=== PATIENT | female | born 1980 | race African-American/Black ===

== ENCOUNTER → 2017-02-16 | Outpatient (CLI) | payer OTHER ==
[~2017-02-16] MED LIST: FLUO20CA8 PO; MOME17SP NS; SERT50TA PO; SUMA100T4 PO; TOPI25TA52 PO; ZOLP12.52 PO
[2017-02-16 17:01] LABS: BASO % 1 % (0-3); EOS % 2 % (0-3); HEMATOCRIT 32.9 % (36.0-47.0); HEMOGLOBIN 11.4 g/dL (12.0-15.5); LYMPH # 1.7 x10^3/uL (1.0-4.8); LYMPH % 38 % (24-48); MEAN CORPUSCULAR HEMOGLOBIN 32 pg (25-35); MEAN CORPUSCULAR HGB CONC 35 g/dL (31-37); MEAN CORPUSCULAR VOLUME 93 fL (79-100); MONO % 7 % (0-9); NEUT % 53 % (31-73); PLATELET COUNT 229 x10^3/uL (140-400); RED BLOOD COUNT 3.55 x10^6/uL (3.50-5.40); RED CELL DISTRIBUTION WIDTH 12.9 % (11.5-14.5); WHITE BLOOD COUNT 4.5 x10^3/uL (4.0-11.0)
[2017-02-16 17:14] LABS: CALCIUM 8.6 mg/dL (8.5-10.1); CREATININE 0.6 mg/dL (0.6-1.0); GFR 136.9; POTASSIUM 4.2 mmol/L (3.5-5.1)
== END | disposition home or self-care (01) ==
LOC: SURGPAT 15:57
PROVIDERS: ATTEND Obstetrics & Gynecology
DX: Z01.818 Encounter for other preprocedural examination (principal)
CPT/HCPCS: 36415; 80048; 85025

== ENCOUNTER 2017-02-24 10:31 | Observation (INO) | payer OTHER ==
[~2017-02-24] VITALS: Ht 160 cm; Wt 83.9 kg
[~2017-02-24 10:31] MED LIST changes: +BUPIVACAINE-EPI 0.25%-1:200000 MPF 30 ML VIAL. ONE; +DEXAMETHASONE SOD PHOS 20 MG/5 ML VIAL. ONE; +ESTROGENS, CONJ VAGINAL CREAM 30GM TUBE. ONE; +HYDROmorphone 2 MG/ML VIAL IV PRN; +IV RINGERS,LACTATED 1000ML 1,000 ML IV SCH; +LIDOCAINE 1% 1 ML SYRINGE. ID PRN; +LIDOCAINE 2% PF Vial for OR 5 ML VIAL. ONE; +MIDAZOLAM HCL/PF 2 MG/2 ML VIAL. ONE; +MORPHINE SULFATE 2 MG/ML DISP.SYRIN. IV PRN; +ONDANSETRON PF 4 MG/2 ML VIAL. IV PRN; +ONDANSETRON PF 4 MG/2 ML VIAL. ONE; +PROCHLORPERAZINE 10 MG/2 ML VIAL. IV PRN; +PROPOFOL 20 ML IV ONE; +ROCURONIUM 100 MG/10 ML VIAL. ONE; +SEVOFLURANE > 120 MINUTES. IH ONE; +fentaNYL PF VIAL 100 MCG/2 ML VIAL IV PRN; +fentaNYL PF VIAL 100 MCG/2 ML VIAL ONE
[2017-02-24] MEDS ORDERED: KETOROLAC 60 MG/2 ML INJ FOR OR. ONE ×2 (10:41→12:49)
[2017-02-24 10:54] LABS: NEG OBC UR NEG; POS OBC UR POS
[2017-02-24] MEDS ORDERED: GLYCOPYRROLATE 1 MG/5 ML VIAL. ONE (12:09)
[2017-02-24] MEDS ORDERED: NEOSTIGMINE 10 MG/10 ML VIAL. ONE (12:40)
[2017-02-24] MEDS ORDERED: SEVOFLURANE 61 TO 120 MINUTES. IH ONE (12:55)
[2017-02-24] MEDS ORDERED: ONDANSETRON PF 4 MG/2 ML VIAL. IV PRN (13:00)
[2017-02-24] MEDS ORDERED: 0.9 % SODIUM CHLORIDE 10 ML DISP.SYRIN. IV PRN (13:00)
[2017-02-24] MEDS ORDERED: diphenhydrAMINE HCL 25 MG CAPSULE PO PRN (13:00)
[2017-02-24] MEDS ORDERED: LACTULOSE 20 GM/30 ML SOLUTION. PO PRN (13:00)
[2017-02-24] MEDS ORDERED: HYDROmorphone 2 MG/ML VIAL IV PRN (13:00)
[2017-02-24] MEDS ORDERED: SIMETHICONE 80 MG TAB.CHEW PO PRN (13:00)
[2017-02-24] MEDS ORDERED: ZOLPIDEM 5 MG TABLET. PO PRN (13:00)
[2017-02-24] MEDS ORDERED: KETOROLAC TROMETHAMINE 30 MG/ML INJ. IV PRN (13:00)
[2017-02-24] MEDS ORDERED: diphenhydrAMINE 50 MG/ML VIAL IV PRN (13:00)
[2017-02-24] MEDS ORDERED: IBUPROFEN 600 MG TABLET. PO PRN (13:00)
[2017-02-24] MEDS ORDERED: NALOXONE 0.4 MG/ML VIAL. IV PRN (13:00)
[2017-02-24] MEDS ORDERED: BISACODYL 10 MG SUPP.RECT. PR PRN (13:00)
[2017-02-24] MEDS ORDERED: CALCIUM CARBONATE 500 MG TAB.CHEW PO PRN (13:00)
[2017-02-24] MEDS ORDERED: HYDROcodone/APAP 5/325MG 1 TAB TABLET PO PRN (13:00)
[2017-02-24] MEDS ORDERED: HYDROmorphone 2 MG/ML VIAL IM PRN (13:00)
[2017-02-24] MEDS ORDERED: MAG HYDROX/ALUMINUM HYD/SIMETH 30 ML ORAL.SUSP PO PRN (13:00)
[2017-02-24] MEDS ORDERED: PROCHLORPERAZINE 25 MG SUPP.RECT. PR PRN ×2 (13:00)
--- NOTE | 2017-02-24 13:00 | PDOC ---
BRIEF OPERATIVE NOTE Date: Feb 24, 2017 Pre-Op Diagnosis menorrhagia, metrorrhagia, uterine fibroids Post-Op Diagnosis same Procedure Performed LAVH and bilateral salpingectomy Surgeon Lexus Clay Caster David Anesthesiologist [place] Anesthesia Type: General Blood Loss 75cc IV Fluid see anesthesia report Urine Output 200cc Specimens Obtained uterus Findings enlarged uterus Complications none OPerative Note see dictation CAREN SHELTON MD Feb 24, 2017 13:00
--- NOTE | 2017-02-24 13:05 | DISCH ---
DISCHARGE INSTRUCTIONS Condition on Discharge Condition on Discharge: Stable Activity After Discharge Activity Instructions for Disc: Avoid exertion, Progressive ambulation Lifting Instructions after Dis: No heavy lifting, No pulling or pushing, Do not lift >10 pounds Exercise Instruction after Dis: Progress as tolerated Driving Instructions after Dis: Do not drive today, No driving for 2 weeks Diet after Discharge Diet after Discharge: Regular Diet Texture: Regular Wound Incision Care Wound/Incision Care: Ice to area for comfort, May get incision wet Contacting the DR. after DC Call your doctor for: If your condition worsens Follow-Up Follow up with: 1 week CAREN Bell MD Feb 24, 2017 13:05
[2017-02-24] MEDS ORDERED: fentaNYL PF VIAL 100 MCG/2 ML VIAL ONE (13:11)
[2017-02-24] MEDS ORDERED: PROCHLORPERAZINE 10 MG/2 ML VIAL. ONE (13:11)
[2017-02-24] MEDS ORDERED: SUMAtriptan SUCCINATE 100 MG TABLET PO PRN (13:15)
--- NOTE | 2017-02-24 13:29 | OP ---
DATE OF SURGERY: 02/24/2017 PREOPERATIVE DIAGNOSES: Menorrhagia, metrorrhagia and uterine fibroids. POSTOPERATIVE DIAGNOSES: Menorrhagia, metrorrhagia and uterine fibroids. PROCEDURE: Laparoscopically assisted vaginal hysterectomy and bilateral salpingectomy. SURGEON: Lis Shelton MD ANESTHESIA: Dr. Brown DIRECTOR OF MIDWIFERY/STAFF MIDWIFE: David. ANESTHESIA TYPE: General. ESTIMATED BLOOD LOSS: 75 mL. URINE OUTPUT: 200 mL of clear urine. SPECIMENS: Uterus and tubes. FINDINGS: Enlarged uterus. COMPLICATIONS: None. DESCRIPTION OF PROCEDURE: After informed consent was obtained, the patient was taken to the operating room, given a smooth induction of anesthesia without complications. Her abdomen, perineum, and vagina were prepped and draped in the usual sterile fashion. Her legs were placed in Sharan stirrups and a Mederos catheter had been previously placed. A bivalve speculum was placed in the vagina and the anterior lip of the cervix was grasped with a single tooth tenaculum. The Valtchev was placed through the cervical os and attached to the tenaculum. The cervicovaginal junction was infiltrated with 0.25% Marcaine with epinephrine at 2, 4, 8 and 10 o'clock on the cervix. After we did this, again the Valtchev had been placed. We then removed the speculum from the cervix. I changed gloves and then went above. A 5 mm incision was made at the umbilicus. The bladeless trocar was placed down through this incision and the camera confirmed good trocar placement. The patient was placed in Trendelenburg. Two lateral ports were placed under direct visualization. We then proceeded to use the LigaSure to cauterize across the round ligaments bilaterally. These were transected and incised and then the tubes were elevated on both sides. We transected the mesosalpinx of the tube from the ovary on both sides to remove the tubes with the specimen. We then proceeded to cauterize across the uteroovarian ligaments bilaterally to leave the ovaries behind and free the uterus. We then proceeded to cauterize down the sides of the uterus. We created a bladder flap anteriorly using sharp dissection with the scissors. The bladder was retracted inferiorly with blunt dissection. Once we reached the uterosacral ligaments cauterizing down the sides of the uterus, we stopped. We then went below to replace the speculum back in the vagina. The Valtchev and tenaculum were replaced by 2 Shaye thyroid clamps. We created a circumferential incision around the cervicovaginal junction and retracted the bladder anteriorly off of the cervix. We then entered the posterior peritoneum using sharp dissection and tacked the posterior peritoneum to the posterior vaginal wall. We then placed a Kierra speculum intraperitoneally. We then proceeded to cauterize the uterosacral cardinal complex using 2 Teodora transfixion sutures. These were then tacked to the lateral vaginal sidewalls and saved for later use. We then proceeded to clamp, cut and ligate the remainder of the cardinal complex on both sides and the remainder of the uterine arteries using the LigaSure. Once the uterus was free, it was removed from the field. We then proceeded to close the peritoneum using a running pursestring suture of 2-0 Vicryl. The vaginal cuff was then closed with a running locking stitch of 2-0 Vicryl. We then proceeded above to irrigate the pelvis. The pelvis was irrigated and no areas of bleeding were noted. Tisseel was sprayed on all the raw surfaces. At this point, the procedure was terminated. The instruments were removed under direct visualization. The gas was allowed to escape. The ports were then closed with an interrupted suture of 4-0 nylon and infiltrated with anesthetic for patient comfort. The patient tolerated the procedure well. There were no complications. LIS SHELTON MD DR: YOLY/adilson JOB#: [id number] / [id number]
[2017-02-24] MEDS: fentaNYL PF VIAL 100 MCG/2 ML VIAL IV PRN ×2 (13:44→14:04)
[2017-02-24 15:37] VITALS: BP 107/63
[2017-02-24] MEDS: oxyCODONE/APAP 5/325 1 TAB TABLET PO PRN ×2 (17:47→22:49)
[2017-02-24] MEDS ORDERED: ZOLPIDEM 5 MG TABLET. PO SCH (21:00)
[2017-02-24 21:45] VITALS: BP 106/67
[2017-02-24] MEDS: TOPIRAMATE 25 MG TABLET. PO SCH (22:50)
--- NOTE | 2017-02-25 01:54 | ACF ---
Admit Criteria Forms Admit Criteria Forms Admit Criteria Forms PAIN MANAGEMENT GRG Clinical Indications for Admission to Inpatient Care (Place 'X' for any and all applicable criteria): Hospital admission is needed for appropriate care of the patient because of 1 or more of the following are present (1)(2)(3)(4)(5): [X ]I. Severe pain requiring acute inpatient management as indicated by 1 or more of the following (2)(5)(10): [ X]a) Continuous or frequent (eg, every 2 to 4 hours) parenteral analgesics required [A] [ ]b) Necessity (ie, alternative approaches not effective) for analgesic regimen that can only be performed or initiated in inpatient setting [ ]II. Pain causing debilitation to the point of inability to function or be supported at any other level of care [ ]III. Severe side effects from pain medications as indicated by ANY ONE of the following (12)(13)(14)(15): [ ]a) Uncontrollable seizures [ ]b) Cardiac arrhythmias of immediate concern [ ]c) Dehydration that is severe or persistent [ ]d) Vomiting that is severe or persistent [ ]e) Altered mental status that is severe or persistent [ ]f) Obstipation with inadequate GI function to maintain nutrition The original [employer] content created by [employer] has been revised. The portions of the content which have been revised are identified through the use of italic text or in bold, and [employer] has neither reviewed nor approved the modified material. All other unmodified content is copyright [employer]. Please see references footnoted in the original [employer] edition 2016 MILEY ROSALES Feb 25, 2017 01:54
[2017-02-25] MEDS: oxyCODONE/APAP 5/325 1 TAB TABLET PO PRN ×2 (03:05→08:46)
[2017-02-25 06:09] VITALS: BP 107/51
--- NOTE | 2017-02-25 08:36 | PDOC ---
SURGICAL PROGRESS NOTE Subjective Doing well. No complaints. Eating and ambulating Vital Signs Vital Signs Date Time Temp Pulse Resp B/P (MAP) Pulse Ox O2 Delivery O2 Flow Rate FiO2 02/25/17 06:09 98.2 65 18 107/51 (69) 98 Room Air 98.2 02/24/17 14:10 2 I&O Intake and Output 02/25/17 07:00 Intake Total 2070 ml Output Total 1250 ml Balance 820 ml Intake Oral 620 ml IV Total 1450 ml Output Urine Total 1250 ml PATIENT HAS A CUEVAS: No General: Alert, Oriented X3, Cooperative, No acute distress HEENT: Mucous membr. moist/pink Lungs: Clear to auscultation, Normal air movement Heart: Regular rate, Normal S1, Normal S2, No murmurs Abdomen: Normal bowel sounds, Soft, No tenderness, No hepatosplenomegaly, No masses, Other (incisions C/D/I) Extremities: No clubbing, No cyanosis, No edema, Normal pulses, No tenderness/ swelling Labs Laboratory Tests Test 02/24/17 10:45 02/24/17 17:40 Urine Test Negative (NEG) Hematocrit 38.4 % (36.0-47.0) Laboratory Tests Test 02/24/17 10:45 02/24/17 17:40 Urine Test Negative (NEG) Hematocrit 38.4 % (36.0-47.0) I have reviewed the following labs, vitals Problem List POD #1 from [facility] and bilateral salpingectomy. Doing well. Plan for discharge today Problems: CAREN SHELTON MD Feb 25, 2017 08:36
[2017-02-25] MEDS: TOPIRAMATE 25 MG TABLET. PO SCH (08:45)
--- NOTE | 2017-02-25 08:45 | PDOC3 ---
Discharge Summary Visit Information Date of Admission: Feb 24, 2017 Date of Discharge: Feb 25, 2017 Admitting Diagnosis: menorrhagia, fibroid uterus Brief Hospital Course Allergies Allergies Coded Allergies Type Severity Reaction Last Updated Verified No Known Drug Allergies 02/24/17 No Vital Signs Vital Signs Date Time Temp Pulse Resp B/P (MAP) Pulse Ox O2 Delivery O2 Flow Rate FiO2 02/25/17 06:09 98.2 65 18 107/51 (69) 98 Room Air 98.2 02/24/17 14:10 2 Lab Results Laboratory Tests Test 02/24/17 10:45 02/24/17 17:40 Urine Test Negative (NEG) Hematocrit 38.4 % (36.0-47.0) Laboratory Tests Test 02/24/17 10:45 02/24/17 17:40 Urine Test Negative (NEG) Hematocrit 38.4 % (36.0-47.0) Brief Hospital Course Ms. Mccormack is a 36 old F who presented with menorrhagia and uterine fibroids. Pt presented yesterday for lavh and bilateral salpingectomy. She underwent the planned procedure without difficulty. Today, pt is doing well. No complaints. She is ambulating and tolerating a regular diet. She wants to go home. Hct is 38 Discharge Information Condition at Discharge: Improved Follow Up: Weeks (1) Scheduled Fluoxetine Hcl (Fluoxetine Hcl), 1 CAP PO DAILY, (Reported) Mometasone Furoate (Nasonex), 1 SPRAY NS DAILY, (Reported) Sertraline Hcl (Zoloft), 1 TAB PO DAILY, (Reported) Sumatriptan Succinate (Sumatriptan Succinate), 100 MG PO ONCE, (Reported) Topiramate (Topamax), 1 TAB PO BID, (Reported) Zolpidem Tartrate (Ambien Cr), 1 TAB PO QHS, (Reported) Patient Instructions Patient Instructions F/u 1 week in office . Instructions given CAREN SHELTON MD Feb 25, 2017 08:45
[2017-02-25] MEDS ORDERED: FLUTICASONE 50MCG/NASAL SPRAY 16GM BOTTLE. NS SCH (09:00)
[2017-02-25] MEDS ORDERED: SERTRALINE 50 MG TABLET. PO SCH (09:00)
[2017-02-25] MEDS ORDERED: FLUoxetine HCL 20 MG CAPSULE PO SCH (09:00)
[2017-02-25 09:41] VITALS: BP 116/63
--- NOTE | 2017-02-28 16:42 | PATHOLOGY ---
PATHOLOGY REPORT * * * * * * * * FINAL DIAGNOSIS: Uterus and bilateral attached fallopian tubes, laparoscopic-assisted vaginal hysterectomy with bilateral salpingectomy: - Adenomyosis, uterine corpus, subbasal, with myometrial hypertrophy (uterine weight 226 grams). - Mild chronic cervicitis with focal squamous metaplasia. - Proliferative endometrium. - Status-post bilateral tubal ligation. - Paratubal cysts, right fallopian tube. COMMENT: There is no atypia or evidence of malignancy. (JPM:mgr; 02/28/2017) REPORT ELECTRONICALLY SIGNED BY: Juan Luis Peacock M.D. DATE/TIME: 02/28/2017 16:41 * * * * * * * * GROSS PATHOLOGY: The specimen is received in formalin labeled "Cutchlow, Angela, uterus, cervix, bilateral fallopian tubes". Received is a 11.8 x 7.5 x 4.8 cm 225.7 g uterus with attached cervix and bilateral fallopian tubes. The uterine serosa is pink forman, smooth and glistening. "The 1.7 cm slit like cervical os is surrounded by pale yellow forman, smooth and glistening ectocervical mucosa. The uterus is oriented using the peritoneal reflection and the anterior paracervical margin is inked black. The uterus is opened laterally to reveal a yellow forman, somewhat granular endocervical canal measuring 4.5 cm in length. The endometrial cavity is roughly triangular measuring 5.5 cm in length by 2.7 cm in width. The endometrium is pale yellow forman in appearance and measures 0.3 in thickness. Serial sectioning reveals a pink forman, focally glandular appearing myometrium measuring 2.2 cm in thickness. The previously ligated, left fimbriated fallopian tube measures 4.3 cm in length by 0.7 cm in diameter. The serosal surface is inked black. Sectioning reveals a mccollum forman pinpoint lumen which is essentially unremarkable. The previously ligated, right fimbriated fallopian tube measures 434 cm in length by 0.8 cm in diameter. Sectioning reveals a mccollum forman pinpoint lumen which is essentially unremarkable. There are a few paratubal cysts, ranging from 0.3 up to 1.2 cm.. [employer] Specialist sections are submitted as follows: A1- anterior cervix A2- posterior cervix A3-4 anterior endomyometrium A5- posterior endomyometrium A6- quality audit representative sections of bilateral fallopian tubes, right is differentially inked (JPM; 8/25/17) INITIAL CPT CODE(S): A; 07249 Professional services performed by [facility] at [address] [address] Technical services performed by [facility] at [address] [place] [address], [facility] [address], [place] [address]. SPECIMEN(S) RECEIVED: A.Uterus, cervix, bilateral fallopian tubes CLINICAL HISTORY: Fibroid, intramural, metrorrhagia, menorrhagia PATIENT: ANGELA ROJAS /AGE: 1105/09/1980 (Age: 36) PATIENT #: [id number] ALT CASE #: SPECIMEN COLLECTION DATE: 02/24/2017 SPECIMEN RECEIVED DATE: 02/25/2017 [facility] - [address] [place] [address] - PHONE: [phone] * * * END OF REPORT * * *
== END 2017-02-25 10:43 | disposition home or self-care (01) ==
LOC: SURG 10:31 → EDUNIT# 11:45 → 3 NORTH 13:25
PROVIDERS: ADMIT Obstetrics & Gynecology; ATTEND Obstetrics & Gynecology
DX: N92.0 Excessive and frequent menstruation with regular cycle (principal); N92.1 Excessive and frequent menstruation with irregular cycle; D25.9 Leiomyoma of uterus, unspecified
CPT/HCPCS: 36415; 58552; 81025; 85014; 86850; 86900; 86901; C1769; G0378; G0379; J0690; J0780; J1100; J1885; J2250; J2704; J2710; J3010; J3490; J7030; J7120; J2405; J2001